=== PATIENT | male | born 1960 | race Caucasian/White ===

== ENCOUNTER 2017-01-28 12:02 | Observation (INO) | payer SELFPAY ==
[~2017-01-28 12:02] MED LIST: ALPR.25 PO; BACT800T5 PO; INSUINJ5 SQ
[2017-01-28 12:04] VITALS: BP 172/97; PULSE 112; RESP 20; O2SAT 95
--- NOTE | 2017-01-28 12:42 | RADRPT ---
EXAM DATE/TIME: 01/28/2017 12:41 [place] COMPARISON: No previous studies available for comparison. INDICATIONS : Short of breath. Chest tightness. MEDICAL HISTORY : None. SURGICAL HISTORY : None. ENCOUNTER: Initial ACUITY: 1 day PAIN SCORE: 2/10 LOCATION: Bilateral chest FINDINGS: PA and lateral views of the chest demonstrate the lungs to be symmetrically aerated without evidence of mass, infiltrate or effusion. The cardiomediastinal contours are unremarkable. Osseous structure s are intact. CONCLUSION: 1. No acute cardiopulmonary disease. Paddy Hidalgo MD on January 28, 2017 at 12:40 Board Certified Radiologist. This report was verified electronically.
[2017-01-28 13:11] LABS: AUTOMATED NEUTROPHIL # 3.7 TH/MM3 (1.8-7.7); BASOPHIL % 0.8 % (0.0-2.0); EOSINOPHIL # 0.1 TH/MM3 (0-0.4); EOSINOPHIL % 2.5 % (0.0-4.0); HEMATOCRIT 47.4 % (39.0-51.0); HEMO FLAGS DIFF FINAL; LYMPH % 25.8 % (9.0-44.0); LYMPHOCYTE # 1.5 TH/MM3 (1.0-4.8); MEAN CORPUSCULAR HEMOGLOBIN 29.4 PG (27.0-34.0); MEAN CORPUSCULAR HGB CONC 34.6 % (32.0-36.0); MONO % 6.8 % (0.0-8.0); NEUT % 64.1 % (16.0-70.0); PLATELET COUNT 308 TH/MM3 (150-450); RED BLOOD COUNT 5.57 MIL/MM3 (4.50-5.90); RED CELL DISTRIBUTION WIDTH 13.7 % (11.6-17.2); WHITE BLOOD COUNT 5.8 TH/MM3 (4.0-11.0)
[2017-01-28 13:17] LABS: APTT (PATIENT) 28.7 SEC (24.3-30.1); PROTHROMBIN TIME - PATIENT 10.7 SEC (9.8-11.6)
[2017-01-28 13:35] LABS: ANION GAP 6 MEQ/L (5-15); BICARBONATE 31.2 MEQ/L (21.0-32.0); BLOOD UREA NITROGEN 10 MG/DL (7-18); CHLORIDE 104 MEQ/L (98-107); CREATINE KINASE 160 U/L (39-308); GLOMERULAR FILTRATION RATE 65 ML/MIN (>89); SODIUM (NA) 141 MEQ/L (136-145)
[2017-01-28 13:39] LABS: POTASSIUM 4.6 MEQ/L (3.5-5.1)
[2017-01-28 14:40] VITALS: O2SAT 97
[2017-01-28 14:41] VITALS: BP 189/89; PULSE 98; RESP 20; O2SAT 97
[2017-01-28] MEDS ORDERED: ACETAMINOPHEN 325 MG TAB PO ONE (14:45)
[2017-01-28] MEDS ORDERED: NITROGLYCERIN 0.4 MG SL 25 TABS/BTL SL ONE (14:45)
[2017-01-28 15:35] VITALS: BP 133/81; PULSE 94; RESP 20
--- NOTE | 2017-01-28 15:42 | PD ---
HPI Chief Complaint: Cardiac Complaint Time Seen by Provider: 14:50 Travel History International Travel<30 days: No Contact w/Intl Traveler<30days: No Traveled to known affect area: No History of Present Illness HPI Patient is a 56-year-old male presenting to emergency evaluation of chest pain. Patient states it started last night at rest. He states the pain was just right to the sternum in his mid chest, radiating across the chest wall. Patient had the pain throughout the night which prompted his emergency department visit today. Patient's past medical history significant for type 1 diabetes, he states his last A1c was 7.3 6 months ago. He is not currently followed by any primary care provider, his A1c was checked during a clinical trial. He also has a history of hypertension, he states he is off of medications since he lost 70 pounds. Patient has never used tobacco products, he denies any illicit drug use. PFSH Past Medical History Blood Disorders: No Cardiac Catheterization: Yes Chest Pain: Yes Diabetes: Yes (1) Patient Takes Glucophage: No Genitourinary: No Hypertension: Yes Immune Disorder: No Musculoskeletal: No Neurologic: No Respiratory: No Myocardial Infarction: Yes (2007) Past Surgical History Eye Surgery: Yes (CATARACTS) Other Surgery: Yes (left small toe amputation) Social History Alcohol Use: No Tobacco Use: No Substance Use: No Allergies-Medications (Allergen,Severity, Reaction): Coded Allergies: No Known Allergies (Unverified , 06/18/16) Reported Meds & Prescriptions Reported Meds & Active Scripts Active Bactrim DS (Sulfamethoxazole-Trimethoprim) 800-160 Mg Tab 1 Tab PO BID Xanax (Alprazolam) 0.25 Mg Tab 0.25 Mg PO DAILY PRN Reported Novolin 70-30 Relion Inj (Insulin NPH Isophane-Reg (Human) 70-30 Inj) 100 Unit/ Ml Inj 25 SQ BID Review of Systems Except as stated in HPI: all other systems reviewed are Neg Cardiovascular: Positive: Chest Pain or Discomfort Physical Exam Narrative GENERAL: Well developed, well-nourished, alert male. Resting comfortably, in no acute distress SKIN: Focused skin assessment warm/dry. HEAD: Atraumatic. Normocephalic. EYES: Pupils equal and round. No scleral icterus. No injection or drainage. ENT: No nasal bleeding or discharge. Mucous membranes pink and moist. NECK: Trachea midline. No JVD. CARDIOVASCULAR: Regular rate and rhythm. No murmur appreciated. RESPIRATORY: No accessory muscle use. Clear to auscultation. Breath sounds equal bilaterally. GASTROINTESTINAL: Abdomen soft, non-tender, nondistended. Hepatic and splenic margins not palpable. MUSCULOSKELETAL: No obvious deformities. No clubbing. No cyanosis. No edema. NEUROLOGICAL: Awake and alert. No obvious cranial nerve deficits. Motor grossly within normal limits. Normal speech. PSYCHIATRIC: Appropriate mood and affect; insight and judgment normal. Data Data Last Documented VS Vital Signs Date Time Temp Pulse Resp B/P Pulse Ox O2 Delivery O2 Flow Rate FiO2 01/28/17 14:41 98 20 189/89 97 01/28/17 14:40 Nasal Cannula Orders Electrocardiogram (01/28/17 ) Complete Blood Count With Diff (01/28/17 12:12) Basic Metabolic Panel (Bmp) (01/28/17 12:12) Ckmb (Isoenzyme) Profile (01/28/17 12:12) Troponin I (01/28/17 12:12) Iv Access Insert/Monitor (01/28/17 12:12) Ecg Monitoring (01/28/17 12:12) Oxygen Administration (01/28/17 12:12) Oximetry (01/28/17 12:12) Act Partial Throm Time (Ptt) (01/28/17 12:12) Prothrombin Time / Inr (Pt) (01/28/17 12:12) Chest, Pa & Lat (01/28/17 12:12) CKMB (01/28/17 12:45) CKMB% (01/28/17 12:45) Nitroglycerin Sl (Nitrostat Sl) (01/28/17 14:45) Acetaminophen (Tylenol) (01/28/17 14:45) Lipase (01/28/17 14:47) Labs Laboratory Tests Test 01/28/17 12:45 White Blood Count 5.8 TH/MM3 Red Blood Count 5.57 MIL/MM3 Hemoglobin 16.4 GM/DL Hematocrit 47.4 % Mean Corpuscular Volume 85.0 FL Mean Corpuscular Hemoglobin 29.4 PG Mean Corpuscular Hemoglobin 34.6 % Concent Red Cell Distribution Width 13.7 % Platelet Count 308 TH/MM3 Mean Platelet Volume 7.5 FL Neutrophils (%) (Auto) 64.1 % Lymphocytes (%) (Auto) 25.8 % Monocytes (%) (Auto) 6.8 % Eosinophils (%) (Auto) 2.5 % Basophils (%) (Auto) 0.8 % Neutrophils # (Auto) 3.7 TH/MM3 Lymphocytes # (Auto) 1.5 TH/MM3 Monocytes # (Auto) 0.4 TH/MM3 Eosinophils # (Auto) 0.1 TH/MM3 Basophils # (Auto) 0.0 TH/MM3 CBC Comment DIFF FINAL Differential Comment Prothrombin Time 10.7 SEC Prothromb Time International 1.0 RATIO Ratio Activated Partial 28.7 SEC Thromboplast Time Sodium Level 141 MEQ/L Potassium Level 4.6 MEQ/L Chloride Level 104 MEQ/L Carbon Dioxide Level 31.2 MEQ/L Anion Gap 6 MEQ/L Blood Urea Nitrogen 10 MG/DL Creatinine 1.15 MG/DL Estimat Glomerular Filtration 65 ML/MIN Rate Random Glucose 236 MG/DL Calcium Level 9.3 MG/DL Total Creatine Kinase 160 U/L Creatine Kinase MB 3.0 NG/ML Troponin I LESS THAN 0.02 NG/ML MDM Medical Decision Making Medical Screen Exam Complete: Yes Emergency Medical Condition: Yes Medical Record Reviewed: Yes Interpretation(s) Last Impressions Chest X-Ray 01/28/17 1212 Signed Impressions: Service Date/Time: Saturday, January 28, 2017 12:41 - CONCLUSION: 1. No acute cardiopulmonary disease. Paddy Hidalgo MD Laboratory Tests Test 01/28/17 12:45 White Blood Count 5.8 TH/MM3 Red Blood Count 5.57 MIL/MM3 Hemoglobin 16.4 GM/DL Hematocrit 47.4 % Mean Corpuscular Volume 85.0 FL Mean Corpuscular Hemoglobin 29.4 PG Mean Corpuscular Hemoglobin 34.6 % Concent Red Cell Distribution Width 13.7 % Platelet Count 308 TH/MM3 Mean Platelet Volume 7.5 FL Neutrophils (%) (Auto) 64.1 % Lymphocytes (%) (Auto) 25.8 % Monocytes (%) (Auto) 6.8 % Eosinophils (%) (Auto) 2.5 % Basophils (%) (Auto) 0.8 % Neutrophils # (Auto) 3.7 TH/MM3 Lymphocytes # (Auto) 1.5 TH/MM3 Monocytes # (Auto) 0.4 TH/MM3 Eosinophils # (Auto) 0.1 TH/MM3 Basophils # (Auto) 0.0 TH/MM3 CBC Comment DIFF FINAL Differential Comment Prothrombin Time 10.7 SEC Prothromb Time International 1.0 RATIO Ratio Activated Partial 28.7 SEC Thromboplast Time Sodium Level 141 MEQ/L Potassium Level 4.6 MEQ/L Chloride Level 104 MEQ/L Carbon Dioxide Level 31.2 MEQ/L Anion Gap 6 MEQ/L Blood Urea Nitrogen 10 MG/DL Creatinine 1.15 MG/DL Estimat Glomerular Filtration 65 ML/MIN Rate Random Glucose 236 MG/DL Calcium Level 9.3 MG/DL Total Creatine Kinase 160 U/L Creatine Kinase MB 3.0 NG/ML Troponin I LESS THAN 0.02 NG/ML Vital Signs Date Time Temp Pulse Resp B/P Pulse Ox O2 Delivery O2 Flow Rate FiO2 01/28/17 14:41 98 20 189/89 97 01/28/17 14:40 97 01/28/17 14:40 97 Nasal Cannula 01/28/17 12:04 112 20 172/97 95 Room Air Differential Diagnosis ACS versus STEMI versus costochondritis versus pleurisy versus gastritis versus GERD versus other Narrative Course Patient is a 56-year-old male presenting to emergency for evaluation of chest pain that started last night at rest. Initial EKG shows sinus tachycardia with a rate of 101, chest x-ray shows no acute disease. Initial cardiac enzymes are negative. Labs are otherwise unremarkable, lipase was added on. Patient does have multiple risk factors secondary to type 1 diabetes, hypertension. He reported that he had a cardiac cath performed in 2009 that showed small blockages with no stent placement. He was given 2 nitroglycerin sublingually in the emergency department, this alleviated his chest pain. Patient will be admitted to the chest pain center, discussed with patient and . Diagnosis Primary Impression: Chest pain Qualified Code: R07.9 - Chest pain, unspecified type Admitting Information Admitting Physician Requests: Observation Condition: Stable Leigha Gaines Jan 28, 2017 15:42
--- NOTE | 2017-01-28 16:13 | EKG ---
Date Performed: 01/28/2017 Time Performed: 11:57:40 PTAGE: 56 years EKG: SINUS TACHYCARDIA ABNORMAL RHYTHM ECG PREVIOUS TRACING : 11/22/2016 23.26 Compared to prior tracing no significant change DOCTOR: Manoj Lujan Interpretating Date/Time 01/28/2017 16:12:36
[2017-01-28] MEDS ORDERED: SODIUM CHLORIDE 0.9% FLUSH 10 ML FLUSH IV FLUSH PRN (17:00)
[2017-01-28] MEDS ORDERED: NITROGLYCERIN 0.4 MG SL 25 TABS/BTL SL PRN (17:00)
[2017-01-28] MEDS ORDERED: ACETAMINOPHEN 500 MG CPLT PO PRN (17:00)
[2017-01-28] MEDS ORDERED: ONDANSETRON HCL 4 MG/2 ML VIAL IV PRN (17:00)
[2017-01-28] MEDS ORDERED: DEXTROSE 50% IN WATER 50 ML VIAL(D50) IV PRN (17:00)
[2017-01-28] MEDS ORDERED: GLUCAGON 1 MG/ML VIAL OTHER PRN (17:00)
--- NOTE | 2017-01-28 18:30 | HHI.HP ---
HPI Primary Care Physician No Primary Care Physician Chief Complaint Chest pain History of Present Illness 56-year-old male with history of type 1 diabetes and hypertension presents to the emergency room for further evaluation of chest pain. Onset last evening 11 PM prior to going to sleep. Location right anterior chest. Characterized as a "severe squeezing and burning." Initially he thought pain was indigestion. Pain lasted all evening. This morning he continued to have chest discomfort and proceeded to work. Approximately 11 AM he experienced radiation to his left arm. Pain improved laying on his back, was made worse laying on his side, hurt to take a deep breath. No associated symptoms of nausea or vomiting. Associated symptom of shortness of breath and "hot sweats." Currently describes chest pain as a "strain." Endorses similar pain in 2013, at that time he was found to have 2 blockages "at the bottom of my heart." Areas were too small for stents, but reports he believes an angioplasty was completed. Review of Systems General: No fatigue,weakness, fever, chills, recent illness, or change in appetite. Has been in his general state of health. Follows with an [place] holistic Physician in [facility]. States he has lost 70 pounds and his hemoglobin A1c down 3 points since following with this physician. HEENT: No LESTER, no vision changes, no nasal congestion or drainage, no dysphasia CV: As stated above. Chest pain now described as a "mild strain." RESP: Initially deep breathing did not make pain worse, throughout the day he reports deep breathing makes pain worse. No SOB, cough, wheeze,, or history of asthma GI: No nausea, vomiting, bowel changes, diarrhea, constipation, pain, distention , melena, or blood in the stool. Intentional weight loss currently 70 pounds loss. : No dysuria EXT: No lower leg edema, no paraesthesias MS: No discomfort or change in ROM NEURO: No difficulty with balance, LOC, motor/sensory deficits PSYCH: No anxiety, depression, or situational stress. SKIN: No rashes, no concerning lesions, history of nonhealing wound Past Family Social History Allergies: Coded Allergies: No Known Allergies (Unverified , 06/18/16) Past Medical History Type 1 diabetes, hypertension, coronary artery disease Past Surgical History Cataracts Reported Medications Reported Novolin 70-30 Relion Inj (Insulin NPH Isophane-Reg (Human) 70-30 Inj) 100 Unit/ Ml Inj 25 SQ BID Okra water BID Active Ordered Medications Current Medications Medications (Trade) Dose Ordered Sig/Alanna Route Start Time Stop Time Status Last Admin (Tylenol) 500 mg Q4H PRN PO 01/28/17 17:00 (Zofran Inj) 4 mg Q6H PRN IV 01/28/17 17:00 (Nitrostat Sl) 0.4 mg Q5M PRN SL 01/28/17 17:00 (Aspirin) 325 mg DAILY PO 01/29/17 09:00 (D50w (Vial) Inj) 50 ml UNSCH PRN IV 01/28/17 17:00 (Glucagon Inj) 1 mg UNSCH PRN OTHER 01/28/17 17:00 Family History Father bypass in his 50s. Social History Known type 1 diabetes and hypertension. No known hyperlipidemia-known small vessel coronary artery disease he is not on statin therapy. Lifelong nonsmoker. Denies any alcohol or illegal drug use. Exercises daily. . Reports working 3 jobs with [employer] and [employer]. All jobs require frequent travel. Past cardiac testing No recent stress testing. Follows with Dr. Denisse Jackson. 2013 cardiac catheterizationreports 2 small areas at the base of his heart, too small for stents believes an angioplasty was completed. Physical Exam Vital Signs Vital Signs Date Time Temp Pulse Resp B/P Pulse Ox O2 Delivery O2 Flow Rate FiO2 01/28/17 16:57 21 01/28/17 15:35 94 20 133/81 01/28/17 14:41 98 20 189/89 97 01/28/17 14:40 97 01/28/17 14:40 97 Nasal Cannula 01/28/17 12:04 112 20 172/97 95 Room Air Physical Exam GENERAL: Alert WN, WD, NAD, pleasant, male HEAD: NC, AT EYES: Sclera clear, conjunctiva without injection, pupils equal and round ENT: Mucous membranes pink and moist, no nasal discharge or bleeding NECK: Supple, no masses, trachea midline CV: RRR, without murmur, rub, gallop, no JVD, S1-S2 no S3-S4. RESP: Clear lungs throughout bilateral, no crackles, wheeze, rhonchi, symmetrical chest rise, nonlabored, able to speak in full sentences ABD: Soft, NT, ND, no masses, positive bowel tones BACK: No CVAT, no scoliosis EXT: Pulses +24, no dependent edema MS: Normal tone 4 extremities, full range of motion NEURO: CN II through CN XII grossly intact, motor strength 5/5, gait WNL PSYCH: A+O 3, pleasant affect, appropriate speech, appropriate mood and affect , insight and judgment SKIN: Normal turgor, normal texture, no lesions, no rashes, Laboratory Laboratory Tests Test 01/28/17 12:45 White Blood Count 5.8 Red Blood Count 5.57 Hemoglobin 16.4 Hematocrit 47.4 Mean Corpuscular Volume 85.0 Mean Corpuscular Hemoglobin 29.4 Mean Corpuscular Hemoglobin 34.6 Concent Red Cell Distribution Width 13.7 Platelet Count 308 Mean Platelet Volume 7.5 Neutrophils (%) (Auto) 64.1 Lymphocytes (%) (Auto) 25.8 Monocytes (%) (Auto) 6.8 Eosinophils (%) (Auto) 2.5 Basophils (%) (Auto) 0.8 Neutrophils # (Auto) 3.7 Lymphocytes # (Auto) 1.5 Monocytes # (Auto) 0.4 Eosinophils # (Auto) 0.1 Basophils # (Auto) 0.0 CBC Comment DIFF FINAL Differential Comment Prothrombin Time 10.7 Prothromb Time International 1.0 Ratio Activated Partial 28.7 Thromboplast Time Sodium Level 141 Potassium Level 4.6 Chloride Level 104 Carbon Dioxide Level 31.2 Anion Gap 6 Blood Urea Nitrogen 10 Creatinine 1.15 Estimat Glomerular Filtration 65 Rate Random Glucose 236 Calcium Level 9.3 Total Creatine Kinase 160 Creatine Kinase MB 3.0 Troponin I LESS THAN 0.02 Lipase 81 Result Diagram: 01/28/17 1245 01/28/17 1245 Imaging Last Impressions Chest X-Ray 01/28/17 1212 Signed Impressions: Service Date/Time: Saturday, January 28, 2017 12:41 - CONCLUSION: 1. No acute cardiopulmonary disease. Paddy Hidalgo MD Course EKG Normal sinus tachycardia, normal axis, no ST or T-segment changes Assessment and Plan Assessment and Plan #1 Atypical chest painadmitted to chest pain center. Ruled out with serial EKGs, cardiac enzymes, and monitored overnight. Will be seen and evaluated by Dr. Hilario Zhao in a.m. Discussed the likelihood to repeat stress test in the a.m. if he rules out. Patient is agreeable to plan of care. #2 DiabetesSSI medium dose coverage #3 Hypertensioncontinue to monitor, patient currently is not taking any prescription medications Discussed importance of statin therapy and cardiac medications with his known small vessel coronary artery disease. Keep follow-up appointment with wellness program coordinator. Radha Rondon Jan 28, 2017 18:29
[2017-01-28 19:03] LABS: CREATINE KINASE 122 U/L (39-308)
[2017-01-28 19:16] LABS: CKMB 2.7 NG/ML (0.5-3.6)
[2017-01-28 20:27] LABS: CREATINE KINASE 121 U/L (39-308)
[2017-01-28 20:40] LABS: CKMB 2.7 NG/ML (0.5-3.6)
[2017-01-28] MEDS: INSULIN ASPART SUPPLEMENTAL SCALE SQ SCH (21:00)
[2017-01-28] MEDS: SODIUM CHLORIDE 0.9% FLUSH 10 ML FLUSH IV FLUSH SCH (21:00)
[2017-01-28 21:27] VITALS: BP 140/81; PULSE 93; RESP 20; TEMP 98.1; O2SAT 96
[2017-01-29 00:03] VITALS: BP 120/78; PULSE 81; RESP 20; TEMP 98; O2SAT 96
[2017-01-29 04:40] VITALS: BP 124/67; PULSE 87; RESP 20; TEMP 97.6; O2SAT 95
[2017-01-29] MEDS: INSULIN ASPART SUPPLEMENTAL SCALE SQ SCH (06:40)
[2017-01-29 07:24] VITALS: O2SAT 93
[2017-01-29] MEDS ORDERED: INSULIN HUMAN NPH/R 70/30 1,000 UNITS/10 ML VIAL SQ SCH (08:00)
[2017-01-29 08:13] VITALS: BP 130/76; PULSE 105; RESP 18; TEMP 97.5; O2SAT 96
[2017-01-29] MEDS: SODIUM CHLORIDE 0.9% FLUSH 10 ML FLUSH IV FLUSH SCH (08:45)
[2017-01-29] MEDS ORDERED: ASPIRIN 325 MG TAB PO SCH (09:00)
--- NOTE | 2017-01-29 10:29 | PD.CARD.PN ---
Subjective Subjective Remarks No complaints Objective Vital Signs / I&O Vital Signs Date Time Temp Pulse Resp B/P Pulse Ox O2 Delivery O2 Flow Rate FiO2 01/29/17 08:13 97.5 105 18 130/76 96 01/29/17 07:24 93 21 01/29/17 04:40 97.6 87 20 124/67 95 01/29/17 00:03 98.0 81 20 120/78 96 01/28/17 21:27 98.1 93 20 140/81 96 01/28/17 16:57 21 01/28/17 15:35 94 20 133/81 01/28/17 14:41 98 20 189/89 97 01/28/17 14:40 97 01/28/17 14:40 97 Nasal Cannula 01/28/17 12:04 112 20 172/97 95 Room Air Physical Exam GENERAL: Alert WN, WD, NAD CV: RRR, without murmur, rub, or gallop, S1-S2 no S3-S4. RESP: Clear lungs throughout bilateral, no crackles, wheeze, rhonchi, symmetrical chest rise, nonlabored, able to speak in full sentences Laboratory Laboratory Tests Test 01/28/17 01/28/17 01/28/17 12:45 17:25 19:50 White Blood Count 5.8 TH/MM3 Red Blood Count 5.57 MIL/MM3 Hemoglobin 16.4 GM/DL Hematocrit 47.4 % Mean Corpuscular Volume 85.0 FL Mean Corpuscular Hemoglobin 29.4 PG Mean Corpuscular Hemoglobin 34.6 % Concent Red Cell Distribution Width 13.7 % Platelet Count 308 TH/MM3 Mean Platelet Volume 7.5 FL Neutrophils (%) (Auto) 64.1 % Lymphocytes (%) (Auto) 25.8 % Monocytes (%) (Auto) 6.8 % Eosinophils (%) (Auto) 2.5 % Basophils (%) (Auto) 0.8 % Neutrophils # (Auto) 3.7 TH/MM3 Lymphocytes # (Auto) 1.5 TH/MM3 Monocytes # (Auto) 0.4 TH/MM3 Eosinophils # (Auto) 0.1 TH/MM3 Basophils # (Auto) 0.0 TH/MM3 CBC Comment DIFF FINAL Differential Comment Prothrombin Time 10.7 SEC Prothromb Time International 1.0 RATIO Ratio Activated Partial 28.7 SEC Thromboplast Time Sodium Level 141 MEQ/L Potassium Level 4.6 MEQ/L Chloride Level 104 MEQ/L Carbon Dioxide Level 31.2 MEQ/L Anion Gap 6 MEQ/L Blood Urea Nitrogen 10 MG/DL Creatinine 1.15 MG/DL Estimat Glomerular Filtration 65 ML/MIN Rate Random Glucose 236 MG/DL Calcium Level 9.3 MG/DL Total Creatine Kinase 160 U/L 122 U/L 121 U/L Creatine Kinase MB 3.0 NG/ML 2.7 NG/ML 2.7 NG/ML Troponin I LESS THAN 0.02 LESS THAN 0.02 LESS THAN 0.02 NG/ML NG/ML NG/ML Lipase 81 U/L Assessment and Plan Assessment and Plan #1 Atypical chest painadmitted to chest pain center. Ruled out with serial EKGs, cardiac enzymes. Seen and evaluated by Dr. Hilraio Zhao. Plan was to complete exercise stress test and patient was agreeable to plan of care. Once lead injection mold technician came to take him for treadmill stress test, he and his both decided he did not need a stress test as he was ruled out with 3 sets of EKGs and cardiac enzymes. Encouraged him to stay for stress test. Both state they will follow up with their primary care provider. Instructed them to return to the emergency room if chest pain returns. Patient signed out AGAINST MEDICAL ADVICE. Radha Rondon Jan 29, 2017 10:29
--- NOTE | 2017-01-29 13:25 | EKG ---
Date Performed: 01/28/2017 Time Performed: 19:21:43 PTAGE: 56 years EKG: Sinus rhythm INDETERMINATE AXIS ATYPICAL ECG PREVIOUS TRACING : 01/28/2017 17.41 Since previous tracing, no significant change noted DOCTOR: Hilario Zhao Interpretating Date/Time 01/29/2017 13:17:44
--- NOTE | 2017-01-29 13:25 | EKG ---
Date Performed: 01/28/2017 Time Performed: 17:33:03 PTAGE: 56 years EKG: Sinus rhythm NORMAL ECG PREVIOUS TRACING : 01/28/2017 11.57 Since previous tracing, no significant change noted DOCTOR: Hilario Zhao Interpretating Date/Time 01/29/2017 13:19:06
== END 2017-01-29 10:17 | disposition left against medical advice (07) ==
LOC: NEPE 12:02 → NEDA 15:43 → NEPGCP 18:14
PROVIDERS: ADMIT Internal Medicine Cardiovascular Disease; ATTEND Internal Medicine Cardiovascular Disease
DX: R07.89 Other chest pain (principal); R00.0 Tachycardia, unspecified; R06.02 Shortness of breath; R61 Generalized hyperhidrosis; R94.31 Abnormal electrocardiogram [ECG] [EKG]; I25.10 Atherosclerotic heart disease of native coronary artery without angina pectoris; I10 Essential (primary) hypertension; E10.9 Type 1 diabetes mellitus without complications; I25.2 Old myocardial infarction; Z89.422 Acquired absence of other left toe(s)
CPT/HCPCS: 71020; 80048; 82550; 82552; 82948; 83690; 84484; 85025; 85610; 85730; 93005; 99285; G0378; J1815